=== PATIENT | male | born 1960 | race Caucasian/White ===

== ENCOUNTER 2021-09-15 16:15 | Emergency (ER) | payer OTHER, SELFPAY ==
[2021-09-15 16:36] VITALS: BP 143/73; PULSE 98; RESP 16; TEMP 36.9; O2SAT 96
--- NOTE | 2021-09-15 16:54 | XRR_ITS ---
PROCEDURE INFORMATION: Exam: XR Right Finger(s) Exam date and time: 09/15/2021 5:04 PM Age: 61 years old Clinical indication: Injury or trauma; Other: Cut thumb with table saw; Laceration; Finger; Right; Additional info: Trauma; Saw injury; R thumb TECHNIQUE: Imaging protocol: Radiologic exam of the Right fingers. Views: Minimum 2 views. COMPARISON: No relevant prior studies available. FINDINGS: Bones/joints: Laceration in the tip of the thumb. Displaced fracture in the tuft of the thumb distal phalanx with multiple tiny bone fragments in the adjacent soft tissues. Soft tissues: Normal. XR/XR finger RT min 2V [id number] IMPRESSION: Laceration and tuft fracture in the distal thumb.
--- NOTE | 2021-09-15 16:55 | ED_ITS ---
HPI - Wound/Laceration General: Chief Complaint: Wound/Laceration Stated Complaint: right thumb injury Time Seen by Provider: 09/15/21 16:49 Source: patient Mode of arrival: ambulatory Limitations: no limitations History of Present Illness: Patient is a 61-year-old male who presents to ED today with a complaint of a laceration to his right thumb that he sustained just prior to arrival after cutting it while using a table saw. Last tetanus unknown. He has no other injuries or complaints at this time. Onset (ago): hour(s) Place: home Patient tetanus UTD: No Context: accidental Associated symptoms: Reports no associated symptoms Treatments prior to arrival: bandage Review of Systems Musc: Reports: extremity pain (R thumb) Skin/Breast: Reports: other (laceration distal R thumb) Neuro: Denies: numbness in extremities or sensory changes PFS ED PFSH: Medical History Laceration of right thumb with foreign body and damage to nail Social History Smoking and tobacco status: current every day smoker (vape) Physical Exam Const: COMMON NORMALS: no acute distress, average body habitus, patient oriented x3, no limitations, healthy appearing, alert and well nourished Extremity: COMMON NORMALS: capillary refill normal GENERAL: Yes normal exam except as noted RIGHT UPPER EXTREMITY: Yes hand & digits OTHER: pt has laceration to distal portion of R thumb that involves a small portion of his nail plate/bed; most of laceration is to the palmar distal pad; NV intact; bleeding controlled Neuro: COMMON NORMALS: patient oriented x3 SENSORIUM/ORIENTATION: Yes alert Procedures Laceration Laceration 1: Site: hand (R thumb) Side (If applicable): right Size (cm): 2.0 Description: irregular Local Anesthetic: lidocaine 1% (digital block) Amount of anesthesia used (mL): 3.0 Pre-repair: wound explored and irrigated extensively Skin layer closed with: nylon and vicryl Size (cm): 4-0 Number of sutures: 6 Technique: simple, interrupted Course Vital Signs: Vital signs: Vital Signs Temperature 98.4 F 09/15/21 16:36 Pulse Rate 98 09/15/21 16:36 Respiratory Rate 16 09/15/21 16:36 Blood Pressure 143/73 09/15/21 16:36 Pulse Oximetry 96 09/15/21 16:36 MDM - Wound/Laceration Medical Decision Making Patient with open tuft fracture of R thumb. Wound was copiously irrigated. Tetanus updated. IM Ancef given here. We will place him on oral antibiotics and pain medications and have him follow-up with orthopedics. Lab Data Radiology Impressions Finger X-Ray 09/15/21 16:54 IMPRESSION: Laceration and tuft fracture in the distal thumb. Discharge Plan Discharge Patient Disposition: Home Clinical Impression: Laceration of right thumb Qualifiers: Encounter type: initial encounter Damage to nail status: with damage Foreign body presence: without foreign body Qualified Code(s): S61.111A - Laceration without foreign body of right thumb with damage to nail, initial encounter Open fracture of phalanx of right thumb Qualifiers: Encounter type: initial encounter Phalanx: distal Fracture alignment: nondisplaced Qualified Code(s): S62.524B - Nondisplaced fracture of distal phalanx of right thumb, initial encounter for open fracture Condition: Stable Prescriptions: New hydrocodone-acetaminophen 5-325 mg tablet 1 tab PO Q6H PRN (Reason: pain) Qty: 14 0RF cephalexin 500 mg capsule 500 mg PO Q6H 7 Days Qty: 28 0RF No Action trazodone 50 mg tablet 25 mg PO DAILY 0RF fluticasone propionate 44 mcg/actuation HFA aerosol inhaler 1 puff inhalation BID 0RF Rx Instructions: administer with spacer Combivent Respimat 20-100 mcg/actuation mist 1 puff inhalation Q6H 0RF omeprazole 40 mg capsule,delayed release(DR/EC) 40 mg PO DAILY 0RF Discharge Orders: Discharge ED (Routine); Ordered 09/15/21 Ordered By: Marilyn Powell Patient Instructions: Finger Laceration (ED), Opioid Safety Activity Restrictions/Additional Instructions: Keep wound/laceration clean with warm soap and water twice daily. Monitor for signs of infection such as redness, swelling, increased pain, or drainage. Please seek medical re-evaluation if these occur. If you received sutures today these will need to be removed (unless you were told by the provider that they are absorbable). The provider should have discussed with you the length of time until removal-orthopedics will probably remove them but if not they can be cut out in 7-10 days. You may return to the emergency department for this service. Case management should contact you in the next 1 to 2 days to set you up with your follow-up orthopedic appointment. Coding Level of Care Code ED Editor Managing Newspaper for Raquel Ballard Exam Expanded Problem Focused
[2021-09-15] MEDS: ceFAZolin 1,000 mg SDV 1000 MG IM (18:08)
[2021-09-15] MEDS: tetanus-diphtheria tox (adult) 0.5 mL SDV IM (18:09)
--- NOTE | 2021-09-16 14:03 | DCPLANNER ---
Addendum entered by Jewels Myles 09/24/21 14:39: biodiesel plant manager was told that patient wanted to go closer to home, case supervisor called patient and explained that there was not an ortho physician in [facility] for patient to follow up with. Patient stated that he was feeling fine and did not want to follow up. Original Note: biodiesel plant manager had message to schedule a follow up appointment for patient with ortho. biodiesel plant manager sent patients information to the front office staff at ortho. Patients information will be printed and reviewed. Clinic will call patient with appointment information.
== END 2021-09-15 18:19 | disposition home or self-care (01) ==
PROVIDERS: Emergency Provider Physician Assistant
DX: S62.524B Nondisplaced fracture of distal phalanx of right thumb, initial encounter for open fracture (principal); S61.111A Laceration without foreign body of right thumb with damage to nail, initial encounter; F17.290 Nicotine dependence, other tobacco product, uncomplicated; W27.0XXA Contact with workbench tool, initial encounter; Z23 Encounter for immunization
CPT/HCPCS: 12001; 73140; 90471; 90714; 96372; 99284; J0690

== ENCOUNTER 2023-04-13 08:31 | Emergency (ER) | payer MEDICAID, SELFPAY ==
[2023-04-13 08:41] VITALS: BP 169/106; PULSE 84; RESP 17; TEMP 36.5; O2SAT 94; BMI 25.2
--- NOTE | 2023-04-13 08:43 | XRR_ITS ---
PROCEDURE INFORMATION: Exam: XR Chest Exam date and time: 04/13/2023 8:50 AM Age: 62 years old Clinical indication: Condition or disease; Lung condition and disease; Copd; Complications not specified; Shortness of breath; Additional info: Chest pain TECHNIQUE: Imaging protocol: Radiologic exam of the chest. Views: 1 view. COMPARISON: No relevant prior studies available. FINDINGS: Lungs: The lung parenchyma is clear. Possible emphysematous changes. Pleural spaces: No pneumothorax. No large pleural effusion. Heart/Mediastinum: The cardiomediastinal silhouette is within normal limits. Bones/joints: Unremarkable. XR/XR chest 1V portable [id number] IMPRESSION: 1. No acute cardiopulmonary abnormality. 2. Possible emphysematous changes.
--- NOTE | 2023-04-13 08:47 | ECG_ITS ---
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 Measurements Intervals [place] Rate: 76 P: 83 NH: 167 QRS: 70 QRSD: 96 T: 71 QT: 359 QTc: 404 Interpretive Statements SINUS RHYTHM No previous ECG available for comparison Electronically Signed On 04-13-2023 14:18:35 SECURITY DIRECTOR by Kile Driver M.D. [id number]
[2023-04-13] MEDS: aspirin 81 mg Chew Tablet 324 MG PO (09:06)
[2023-04-13 09:09] LABS: Basophils # 0.1 10^3/uL (0.0-0.1); Basophils % 1.4 %; Eosinophils # 0.6 10^3/uL (0.0-0.8); Eosinophils % 9.3 %; Hematocrit 43.9 % (37-53); Lymphocytes # 1.7 10^3/uL (0.8-4.8); Lymphocytes % 27.7 %; Mean Corpuscular HGB Conc 33.7 g/dL (30-55); Mean Corpuscular Hemoglobin 29.7 pg (27-33); Mean Platelet Volume 10.2 fL (7.4-10.4); Monocytes # 0.4 10^3/uL (0.2-0.9); Monocytes % 6.9 %; Neutrophils % 54.5 %; Nucleated Red Blood Cells % 0 %; Platelet Count 255 10^3/cmm (157-399); Red Blood Count 4.99 10^6/uL (3.85-5.65); Red Cell Distribution Width 12.5 % (12.1-15.1); White Blood Count 6.24 10^3/uL (3.29-11.43)
--- NOTE | 2023-04-13 09:11 | ED_ITS ---
HPI - SOB/Dyspnea 2 General: Chief Complaint: Shortness of Breath/Dyspnea Stated Complaint: sob, tight chest Time Seen by Provider: 04/13/23 08:32 Source: patient Mode of arrival: ambulatory History of Present Illness: HPI Narrative: 62-year-old male presents emergency room with cough tightness congestion wheezing is going on for couple of weeks. He has a history of COPD describes some upper chest discomfort bilaterally with no radiation to the neck back or arms at this time no history of coronary disease denies any fever sweats or chills cough has been nonproductive. States his inhalers are not not helpful at this point. MD elicited complaint: shortness of breath and cough Pertinent past history: COPD Onset (ago): week(s) Timing: intermittent Severity: mild Exacerbating factors: exertion and coughing Relieving factors: bronchodilators (Initially were held relieving but no longer seem to be effective) Known history of: COPD Associated symptoms: Reports chest congestion, chest pain and cough; Deny abdominal pain, diaphoresis, dizziness, extremity pain, fever(s), hemoptysis, lightheadedness, myalgias, nausea, orthopnea, palpitations, paresthesias, polydipsia, polyuria, rash, sense of impending doom, syncope, vomiting or other Treatment prior to arrival: none Review of Systems 2 Const: Denies: fever(s) or diaphoresis Card: Reports: chest pain; Denies: palpitations, lightheadedness, syncope or orthopnea Resp: Reports: dyspnea, non-productive cough, wheezing and chest congestion; Denies: hemoptysis GI: Denies: abdominal pain, nausea or vomiting : Denies: dysuria, urinary frequency or urinary urgency Musc: Denies: extremity pain Skin/Breast: Denies: rash Neuro: Denies: dizziness Endo: Denies: polyuria or polydipsia PFSH ED 2 PFSH: Medical History Laceration of right thumb with foreign body and damage to nail Social History Smoking and tobacco/nicotine status: current every day tobacco/nicotine user (vape) Physical Exam 2 Const: COMMON NORMALS: no acute distress GENERAL APPEARANCE: cooperative and comfortable ORIENTATION/CONSCIOUSNESS: Yes awake, Yes oriented to person, Yes oriented to place and Yes oriented to time HENMT: COMMON NORMALS: normocephalic, atraumatic and hearing grossly normal bilaterally HEAD & SCALP: normocephalic and atraumatic Resp: COMMON NORMALS: normal respiratory effort, No retractions, No use of accessory muscles and clear to auscultation bilaterally AUSCULTATION: clear to auscultation bilaterally Cardio: COMMON NORMALS: regular rate, regular rhythm and No murmurs present (Cardio) RATE: regular rate RHYTHM: regular rhythm GI: COMMON NORMALS: Soft to palpation and No hepatosplenomegaly present A USCULTATION: Yes normoactive bowel sounds PALPATION: Yes Soft to palpation, No Tenderness to palpation present (GI), No Guarding due to palpation present (GI) and Yes No hepatosplenomegaly present Extremity: COMMON NORMALS: normal to inspection, capillary refill normal, no clubbing, cyanosis or edema, no calf tenderness and no pedal edema Neuro: SENSORIUM/ORIENTATION: Yes oriented to person, Yes oriented to place and Yes oriented to time Skin: COMMON NORMALS: no rashes or lesions noted GENERAL SKIN EXAM: no rashes or lesions noted Course 2 Vital Signs: Vital signs: Vital Signs Temperature 97.7 F 04/13/23 08:41 Pulse Rate 87 04/13/23 12:03 Respiratory Rate 18 04/13/23 10:16 Blood Pressure 121/79 04/13/23 12:03 Pulse Oximetry 92 04/13/23 12:03 Oxygen Delivery Me thod Room Air 04/13/23 11:00 MDM - SOB/Dyspnea Medical Decision Making EKG and cardiac enzymes not show any acute changes. Chest x-ray unremarkable put her on a steroid taper also a course of doxycycline continue to use rescue inhalers as well as Spiriva that was previously prescribed if symptoms persist follow-up with primary care. Patient also a lot of nasal congestion steroids antibiotic should help with that as well. Differential Diagnosis Likely acute exacerbation of chronic obstructive airways disease Medical Records I reviewed the patient's medical records. Lab Data I reviewed the patient's lab results. 04/13/23 08:59 04/13/23 08:59 Labs/Radiology: Radiology Impressions Chest X-Ray 04/13/23 08:43 IMPRESSION: 1. No acute cardiopulmonary abnormality. 2. Possible emphysematous changes. Laboratory Results WBC 6.24 10^3/uL (3.29-11.43) 04/13/23 08:59 RBC 4.99 10^6/uL (3.85-5.65) 04/13/23 08:59 Hgb 14.80 g/dL (11.27-16.99) 04/13/23 08:59 Hct 43.9 % (37-53) 04/13/23 08:59 MCV 88.0 fl (82-101) 04/13/23 08:59 MCH 29.7 pg (27-33) 04/13/23 08:59 MCHC 33.7 g/dL (30-55) 04/13/23 08:59 RDW 12.5 % (12.1-15.1) 04/13/23 08:59 Plt Count 255 10^3/cmm (157-399) 04/13/23 08:59 MPV 10.2 fL (7.4-10.4) 04/13/23 08:59 Neut % (Auto) 54.5 % 04/13/23 08:59 Lymph % (Auto) 27.7 % 04/13/23 08:59 [place] % (Auto) 6.9 % 04/13/23 08:59 Eos % (Auto) 9.3 % 04/13/23 08:59 Baso % (Auto) 1.4 % 04/13/23 08:59 Neut # (Auto) 3.40 10^3/uL (1.8-7.7) 04/13/23 08:59 Lymph # (Auto) 1.7 10^3/uL (0.8-4.8) 04/13/23 08:59 [place] # (Auto) 0.4 10^3/uL (0.2-0.9) 04/13/23 08:59 Eos # (Auto) 0.6 10^3/uL (0.0-0.8) 04/13/23 08:59 Baso # (Auto) 0.1 10^3/uL (0.0-0.1) 04/13/23 08:59 Nucleated RBC % (auto) 0 % 04/13/23 08:59 Nucleated RBCs # 0.0 /100WBC 04/13/23 08:59 Sodium 137 mmol/L (136-145) 04/13/23 08:59 Potassium 4.1 mmol/L (3.5-5.1) 04/13/23 08:59 Chloride 104 mmol/L (98-107) 04/13/23 08:59 Carbon Dioxide 24 mmol/L (22-29) 04/13/23 08:59 Anion Gap 13.1 (5-19) 04/13/23 08:59 BUN 28 mg/dL (8-23) H 04/13/23 08:59 Creatinine 1.1 mg/dL (0.7-1.2) 04/13/23 08:59 GFR Calculation 67.4 mL/min (90-130) L 04/13/23 08:59 Glucose 97 mg/dL (65-115) 04/13/23 08:59 Calculated Osmolality 289 mOsm/kg (285-295) 04/13/23 08:59 Calcium 8.8 mg/dL (8.5-10.5) 04/13/23 08:59 Total Bilirubin 0.6 mg/dL (0.15-1.2) 04/13/23 08:59 AST 17 U/L (0-40) 04/13/23 08:59 ALT 21 U/L (0-41) 04/13/23 08:59 Alkaline Phosphatase 79 U/L (40-130) 04/13/23 08:59 Troponin T Baseline < 6 ng/L (0-15) 04/13/23 08:59 Troponin T 120 Minute 6.00 ng/L (0-15) 04/13/23 10:51 Delta Troponin T 0.71891 ABS# (0-10) 04/13/23 10:51 Total Protein 6.8 g/dL (6.6-8.7) 04/13/23 08:59 Albumin 4.3 g/dL (3.5-5.2) 04/13/23 08:59 Globulin 2.5 g/dL (1.3-4.6) 04/13/23 08:59 All radiology interpretation(s) finalized by discharge Discharge Plan Discharge Patient Disposition: Home Clinical Impression: Acute exacerbation of chronic obstructive airways disease Condition: Stable Prescriptions: New doxycycline hyclate 100 mg capsule 100 mg PO BID 10 Days Qty: 20 0RF prednisone 20 mg tablet 20 mg PO TID Qty: 15 0RF Rx Instructions: 1 p.o. 3 times daily x3 days, 1 p.o. twice daily x2 days, 1 p.o. daily x2 days albuterol sulfate 90 mcg/actuation HFA aerosol inhaler 2 inh INHALATION Q4H PRN (Reason: shortness of breath or wheezing) Qty: 18 0RF No Action trazodone 50 mg tablet 25 mg PO DAILY Combivent Respimat 20-100 mcg/actuation mist 1 puff inhalation Q6H omeprazole 40 mg capsule,delayed release(DR/EC) 40 mg PO DAILY celecoxib 200 mg capsule 200 mg PO BID simvastatin 40 mg tablet 40 mg PO QPM lisinopril 10 mg tablet 10 mg PO DAILY Ventolin HFA 90 mcg/actuation HFA aerosol inhaler 2 puff INHALATION .Q4-6H PRN (Reason: Shortness Of Breath) fluticasone propionate 50 mcg/actuation spray,suspension 1 - 2 spray INTRANASAL DAILY PRN (Reason: UNKNOWN) Spiriva with HandiHaler 18 mcg capsule, w/inhalation device See Rx Instructions .ROUTE .COMPLEX Rx Instructions: INHALE BY INHALATION ROUTE EVERY DAY THE CONTENTS OF ONE CAPSULE (18 MCG) USING 2 INHALATIONS VIA HANDIHALER Discharge Orders: Discharge ED (Routine); Ordered 04/13/23 Ordered By: Griffin Simons Referrals: Moncho Vines FNP [Primary Care Provider] - Discharge Diet: Usual diet Discharge Activity: Increase activity as tolerated Patient Instructions: Opioid Safety, Pain Management Activity Restrictions/Additional Instructions: Thank you for choosing [facility] for your healthcare needs today. Please realize this is an emergency room and that we are providing you with a medical screening exam and this may not be complete and all inclusive of all the testing and or work up that you may need to determine your ailment or severity of your illness. It is very important that you follow up as instructed or that you return to the Emergency Department should you have concerns or if your condition changes or worsens in any way. You are seen today for chest discomfort your cardiac enzymes and EKG did not show any acute changes chest x-ray does not show any acute infiltrates. Recommend a course of doxycycline and steroid taper which she should begin tomorrow. Continue to use your inhaled medications either Combivent or albuterol as needed for rescue continue your other previously prescribed inhaled medications as needed. Follow-up with your doctor if not improving Coding Level of Care Code ED Powdered Sugar Pulverizer Operator for Raquel Ballard
[2023-04-13 09:33] LABS: Alanine Aminotransferase 21 U/L (0-41); Albumin Level 4.3 g/dL (3.5-5.2); Alkaline Phosphatase 79 U/L (40-130); Anion Gap 13.1 (5-19); Aspartate Amino Transferase 17 U/L (0-40); Blood Urea Nitrogen 28 mg/dL (8-23); Calcium 8.8 mg/dL (8.5-10.5); Carbon Dioxide 24 mmol/L (22-29); Chloride 104 mmol/L (98-107); Globulin 2.5 g/dL (1.3-4.6); Glomerular Filtration Rate 67.4 mL/min (90-130); Glucose 97 mg/dL (65-115); Osmolality Calculated 289 mOsm/kg (285-295); Potassium 4.1 mmol/L (3.5-5.1); Sodium 137 mmol/L (136-145); Total Bilirubin 0.6 mg/dL (0.15-1.2); Total Protein 6.8 g/dL (6.6-8.7); Troponin(5th) Baseline < 6 ng/L (0-15)
--- NOTE | 2023-04-13 09:34 | PC.PHAR ---
PT AND PCP TRYING INHALERS THAT WILL BE COVERED ON MEDICARE. PT HAS NEW ORDER FOR ADVAIR 250/50 TWICE DAILY AND SYMBICORT 160/4.5 TWICE DAILY, WHICH DO NOT WORK SO HAVE BEEN TAKEN OFF HIS LIST ALREADY. BOTH FILLED 04/06/23 30DS. 04/13/23
[2023-04-13] MEDS: dexamethasone 10 mg/mL INJ IM (09:54)
[2023-04-13 10:00] VITALS: BP 146/94; PULSE 75; O2SAT 94
[2023-04-13] MEDS: ipratropium-albuterol 3 mL Neb INHALATION (10:14)
[2023-04-13 10:16] VITALS: PULSE 78; RESP 18; O2SAT 92
[2023-04-13 10:25] VITALS: PULSE 80
--- NOTE | 2023-04-13 10:43 | ECG_ITS ---
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 Measurements Intervals [place] Rate: 75 P: 76 MD: 157 QRS: 56 QRSD: 96 T: 62 QT: 387 QTc: 434 Interpretive Statements SINUS RHYTHM NONSPECIFIC T-WAVE ABNORMALITY Compared to ECG 04/13/2023 08:41:40 T-wave abnormality now present Electronically Signed On 04-13-2023 14:20:49 EMPLOYEE BENEFITS SPECIALIST by Kiel Driver M.D. [id number]
[2023-04-13 11:00] VITALS: BP 111/81; PULSE 86; O2SAT 94
[2023-04-13 11:26] LABS: Troponin 5 2HR Delta 0.00001 ABS# (0-10)
[2023-04-13 12:03] VITALS: BP 121/79; PULSE 87; O2SAT 92
== END 2023-04-13 12:05 | disposition home or self-care (01) ==
PROVIDERS: Emergency Provider Family Medicine; PCP Nurse Practitioner Family
DX: J44.1 Chronic obstructive pulmonary disease with (acute) exacerbation (principal); F17.290 Nicotine dependence, other tobacco product, uncomplicated
CPT/HCPCS: 36415; 71045; 80053; 84484; 85025; 93005; 94640; 96372; 99285; J1100

== ENCOUNTER 2023-05-15 09:05 | Outpatient (CLI) | payer MEDICAID, SELFPAY ==
--- NOTE | 2023-05-15 09:12 | CTR_ITS ---
PROCEDURE INFORMATION: Exam: CT Chest With Contrast; Diagnostic Exam date and time: 05/15/2023 9:19 AM Age: 62 years old Clinical indication: Patient HX: Cough, chest pain about 3 weeks ago, since resolved, HX of copd TECHNIQUE: Imaging protocol: Diagnostic computed tomography of the chest with contrast. Radiation optimization: All CT scans at this facility use at least one of these dose optimization techniques: automated exposure control; mA and/or kV adjustment per patient size (includes targeted exams where dose is matched to clinical indication); or iterative reconstruction. Contrast material: OMNI 350; Contrast volume: 100 ml; Contrast route: INTRAVENOUS (IV); COMPARISON: CR XR chest 1V portable [id number] 04/13/2023 8:50 AM RADIATION DOSE METRICS: Total DLP (mGy-cm): 352.61 FINDINGS: Lungs: A few small benign calcified nodes within the mediastinum and a small calcified granuloma anterior right lung base, indicating mild benign healed granulomatous disease. Mild subsegmental atelectasis lower left lung. This is associated with mild amount of ground-glass opacity on the lung windows which also demonstrate a small focus of ground-glass opacity medial mid right lung. A tiny 3 mm noncalcified pulmonary nodule noted peripherally within the posterior mid right lung and anterior peripheral lower right lung, nonspecific. Mild emphysematous change. Pleural spaces: No pleural effusion. No pneumothorax. Heart: No cardiomegaly or pericardial effusion. Coronary arteries: No coronary artery calcification. Lymph nodes: No significant lymphadenopathy. Vasculature: Unremarkable. No aortic aneurysm. Diaphragm: Minimal hiatal hernia. Bones/joints: Mild spondylotic change thoracic. Soft tissues: Unremarkable. CT/CT chest w con* [id number] IMPRESSION: 1. Mild emphysematous change and mild benign healed granulomatous disease. 2. Mild subsegmental atelectasis is seen in the lower left lung with lung windows demonstrating associated mild amount of ground-glass opacity at this level as well as a small subtle focus of ground-glass opacity medially mid right lung. These could represent areas of minimal infiltrate or resolving infiltrate. No consolidation or effusion. 3. A tiny 3 mm noncalcified pulmonary nodule peripheral posterior mid right lung and anterior peripheral lower right lung, nonspecific. For patients at low risk (minimal or absent history of smoking and of other known risk factors), no routine follow-up is indicated. For patients at high risk (history of smoking or of other known risk factors), consider optional CT Chest at 12 months. (Reference: Jon) COMMENTS: The presence of pulmonary emphysema on CT is an independent risk factor for lung cancer. In the absence of a history or active diagnosis of lung cancer, it is recommended that this patient with emphysema be evaluated for enrollment in a low dose CT lung cancer screening program.
[2023-05-15] MEDS: iohexol 350 mg/mL 500 mL Btl (per mL) IV (09:34)
== END 2023-05-15 09:06 | disposition home or self-care (01) ==
LOC: RAD 09:06
PROVIDERS: PCP Nurse Practitioner Family; Visit Provider Nurse Practitioner Family
DX: J43.9 Emphysema, unspecified (principal); J98.11 Atelectasis; R91.8 Other nonspecific abnormal finding of lung field; R05.9 Cough, unspecified; R07.9 Chest pain, unspecified; J44.9 Chronic obstructive pulmonary disease, unspecified
CPT/HCPCS: 71260; Q9967

== ENCOUNTER → 2023-08-24 11:03 | Outpatient (BNVA) | payer MEDICAID, SELFPAY | PROVIDERS: PCP Nurse Practitioner Family; Visit Provider Specialist | DX: M25.552 Pain in left hip (principal) | CPT/HCPCS: 73502 ==

== ENCOUNTER → 2024-01-11 14:38 | Outpatient (BNVA) | payer MEDICARE, SELFPAY | PROVIDERS: PCP Nurse Practitioner Family; Visit Provider Surgery | DX: M79.81 Nontraumatic hematoma of soft tissue (principal); K59.00 Constipation, unspecified | CPT/HCPCS: 99204 ==

== ENCOUNTER → 2024-03-01 09:47 | Outpatient (BNVA) | payer MEDICARE, SELFPAY | PROVIDERS: PCP Nurse Practitioner Family; Referring Provider Nurse Practitioner Family; Visit Provider Nurse Practitioner Family | DX: L81.4 Other melanin hyperpigmentation (principal); L57.8 Other skin changes due to chronic exposure to nonionizing radiation; D22.5 Melanocytic nevi of trunk; Z08 Encounter for follow-up examination after completed treatment for malignant neoplasm; Z85.820 Personal history of malignant melanoma of skin; B07.8 Other viral warts; L29.89 Other pruritus; R20.8 Other disturbances of skin sensation; L53.8 Other specified erythematous conditions; D48.5 Neoplasm of uncertain behavior of skin | CPT/HCPCS: 11102; 17110; 99203 ==

== ENCOUNTER 2024-03-24 14:13 | Outpatient (CLI) | payer MEDICARE, SELFPAY ==
--- NOTE | 2024-03-24 14:18 | CT_ITS ---
WS: [id number] CT ABDOMEN AND PELVIS WITH AND WITHOUT CONTRAST HISTORY: ABDOMINAL PAIN TECHNIQUE: Unenhanced 5 mm axial imaging first performed through the abdomen. Post contrast imaging t hrough the abdomen and pelvis. Oral contrast has been provided. Sagittal and coronal reformats are s ubmitted. All CT scans at [facility] use at least one of these dose optimization techniques: automated exposure control; mA and/or kV adjustment per patient size (includes targeted exams where d ose is matched to clinical indication); or iterative reconstruction. CONTRAST: Omnipaque 350; 95 mL IV. DLP: 713.60 mGy.cm COMPARISON: None available. Benign calcified granuloma anterior RIGHT middle lobe. Heart size is normal. Small hiatal hernia. Sma ll amount of oral contrast in the distal esophagus. Normal size liver with no intrahepatic duct dilatation. Normal portal vein. Normal gallbladder. Splee n is normal size with granulomata. No adrenal mass. Normal pancreas. RIGHT kidney: No obstruction, cortical thinning or calcifications. No mass. LEFT kidney: Normal size kidney with no obstruction or hydronephrosis. Benign cysts with the largest in the lower pole measuring 2.7 x 2.9 cm. Aorta: Very mild atherosclerotic plaque within the aorta. Mesenteric arteries are well enhanced. Nondistended stomach. No small bowel obstruction. Appendix is not identified. There are clips at the cecum indicating a prior appendectomy. Mild distal colonic diverticular disease. No acute diverticuli tis. No obstruction. A small portion of the sigmoid is obscured by artifact from the patient's hip ar throplasties. Urinary bladder is obscured by artifact from hip arthroplasties. No ascites or adenopathy. No destructive bone lesions. Bilateral hip arthroplasties. CT/CT abdomen pelvis wo/w [id number] IMPRESSION: 1. No renal calcifications or obstruction. 2. Mild sigmoid diverticulosis. No acute diverticulitis. 3. No colon obstruction. There is mild to moderate constipation in the more pr oximal colon. No obstructing lesion identified. 4. A small portion of the distal colon and the urinary bladder are not visuali zed due to artifact from patient's hip prostheses. 5. LEFT renal cysts.
[2024-03-24] MEDS: iohexol 350 mg/mL 500 mL Btl (per mL) PO (15:20)
[2024-03-24] MEDS: iohexol 350 mg/mL 500 mL Btl (per mL) IV (15:33)
== END 2024-03-24 14:14 | disposition home or self-care (01) ==
LOC: RAD 14:14
PROVIDERS: PCP Nurse Practitioner Family; Visit Provider Nurse Practitioner Family
DX: K57.30 Diverticulosis of large intestine without perforation or abscess without bleeding (principal); K59.00 Constipation, unspecified; Z96.89 Presence of other specified functional implants; N28.1 Cyst of kidney, acquired; J84.10 Pulmonary fibrosis, unspecified; K44.9 Diaphragmatic hernia without obstruction or gangrene; D73.89 Other diseases of spleen; I70.0 Atherosclerosis of aorta; Z98.890 Other specified postprocedural states
CPT/HCPCS: 74178

== ENCOUNTER → 2024-04-08 10:28 | Outpatient (BNVA) | payer MEDICARE, SELFPAY | PROVIDERS: PCP Nurse Practitioner Family; Visit Provider Dermatology | DX: C44.319 Basal cell carcinoma of skin of other parts of face (principal); B07.8 Other viral warts; L29.89 Other pruritus; R20.8 Other disturbances of skin sensation; L53.8 Other specified erythematous conditions; L91.8 Other hypertrophic disorders of the skin | CPT/HCPCS: 11200; 13132; 17110; 17311 ==